=== PATIENT | female | born 1980 | race Caucasian/White ===

== ENCOUNTER 2017-05-31 14:14 | Emergency (ER) | payer OTHER ==
--- NOTE | 2017-05-31 15:30 | EDPHY ---
H & P Stated Complaint: LOWER ABD PAIN W/ CHILLS X 2 DAYS Source: Patient Exam Limitations: No limitations - Personal History LMP (Females 10-55): 8-14 Days Ago Current Tetanus Diphtheria and Acellular Pertussis (TDAP): Yes - Medical/Surgical History Other PMH: DEPRESSION-RESOLVED - Social History Smoking Status: Never smoked HPI/ROS: CHIEF COMPLAINT: Lower abdominal pain HISTORY OF PRESENT ILLNESS: Patient complains of lower abdominal/suprapubic pain. This started yesterday morning. It has been constant duration. [id number]. Worse with palpation, bending over and standing up or Valsalva. Does not radiate. Nausea but no vomiting. No dysuria, hematuria or urinary frequency. No flank pain. She feels as though her bladder or uterus are inflamed or causing the pain. She also has a slight concern for ectopic , which she has not taken a test. She is trying to become over the past 8 months. Single partner. No vaginal bleeding or discharge. No trauma or injury. No other associated complaints or modifying factors. REVIEW OF SYSTEMS: Ten systems reviewed and are negative unless otherwise noted in the HPI PAST MEDICAL HISTORY: Denies any medical history or medications. SOCIAL HISTORY: Nonsmoker. 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 No murmur. Gastrointestinal: Abdomen is soft and nondistended. There is moderate suprapubic tenderness. No right lower quadrant tenderness. Negative McBurney. Negative obturator or heel jar. No rebound. No distention. No guarding. No CVA tenderness. Nonacute abdomen. Back: non-tender, no bony abnormalities Neurological: A&O, nonfocal, normal gait Skin: Warm and dry, no rash Extremities: Nontender, no pedal edema Psychiatric: Mood and affect normal DIFFERENTIAL DIAGNOSES: Including but not limited to cystitis, uterine fibroids, ovarian cysts, ectopic , UTI, ovarian torsion MDM: 3:25 p.m. Suprapubic abdominal pain and central pelvic pain since yesterday. Abdominal exam is nonacute. She does have suprapubic tenderness. Vital signs are within normal limits. Laboratory studies have been ordered. She feels this is related to her uterus, thus I have ordered a pelvic ultrasound. 4:20 p.m. Laboratory studies are well within normal limits. There are no acute abnormalities. Notified by radiologist Dr. Savage. Ultrasound reveals a left- sided ovarian cyst. There is no torsion of either ovary. Normal-appearing uterus. I have re-evaluated the patient. She still has a moderate to severe suprapubic pain. She is very tender on examination. We discussed the risks, benefits and alternatives of CT scan and she would like to proceed with CT scan of the abdomen pelvis. We discussed that this may not delineate her pain, and she is comfortable with proceeding with CT scan. 5:30 p.m. At this time I have discussed the case with Dr. Gonzalez. I have checked the patient out to him. He will provide final disposition pending the CT scan. Please see his note for further details. SUPERVISION: Patient was evaluated in conjunction with the supervising physician. Please see their note for details. (Ge Martinez) Constitutional: Initial Vital Signs Temperature (C) 98.8 F 05/31/17 14:24 Heart Rate 92 05/31/17 14:24 Respiratory Rate 18 05/31/17 14:24 Blood Pressure 156/107 H 05/31/17 14:24 O2 Sat (%) 96 05/31/17 14:24 O2 Delivery Mode Room Air Allergies/Adverse Reactions: amoxicillin [Amoxicillin] Allergy (Mild, Verified 12/29/09 06:28) Rash Home Medications: Medication Instructions Recorded Hydrocodone/APAP 5/325 [Jasper 1 - 2 tab PO Q4H PRN #13 tab 05/31/17 5/325 (*)] Ondansetron Odt [Zofran Odt 4 mg 4 mg PO Q6 PRN #12 tab 05/31/17 (*)] Medical Decision Making ED Course/Re-evaluation: Care transferred [facility] from [facility] pending CT scan of the abdomen pelvis. I have reviewed the CT and ultrasound with Dr. Park, radiology. No acute findings other than a cyst. On examination patient has some suprapubic tenderness. Urinalysis is negative for UTI at this time. Blood work is unremarkable. Is unclear the cause of the patient's pain at this time. Will discharge with follow up with her OBGYN early next week. (Narinder Gonzalez) - Data Points Laboratory Results: Laboratory Results 05/31/17 15:20 05/31/17 15:20 Medications Given: Discontinued Medications Sodium Chloride (Ns) 1,000 mls @ 0 mls/hr IV EDNOW ONE; Wide Open PRN Reason: Protocol Stop: 05/31/17 16:23 Last Admin: 05/31/17 16:50 Dose: 1,000 mls Departure - Departure Disposition: Home, Routine, Self-Care Clinical Impression: Abdominal pain Qualifiers: Abdominal location: lower abdomen, unspecified Qualified Code(s): R10.30 - Lower abdominal pain, unspecified Condition: Good Instructions: Abdominal Pain (ED) Additional Instructions: 1. Medications as prescribed as needed 2. Follow up with primary care physician as discussed 3. ED precautions as discussed Referrals: NONE *PRIMARY CARE P,. [Primary Care Provider] - As per Instructions Lorraine Patel MD [Medical Doctor] - As per Instructions Prescriptions: Hydrocodone/APAP 5/325 [Jasper 5/325 (*)] 1 - 2 tab PO Q4H PRN #13 tab PRN Reason: Pain, Moderate Ondansetron Odt [Zofran Odt 4 mg (*)] 4 mg PO Q6 PRN #12 tab PRN Reason: Nausea/Vomiting, Use 1st
[2017-05-31 15:39] LABS: % IMMATURE GRANULYOCYTES 0.2 % (0.0-1.1); ABSOLUTE IMMATURE GRANULOCYTES 0.02 10^3/uL (0.00-0.10); ADD DIFF? NO; ADD MORPH? NO; ADD SCAN? NO; ATYPICAL LYMPHOCYTE FLAG 0 (0-99); FRAGMENT RBC FLAG 10 (0-99); HEMATOCRIT 44.2 % (38.0-47.0); HEMOGLOBIN 15.2 g/dL (12.6-16.3); LEFT SHIFT FLG 0 (0-99); LIPEMIA HEMOLYSIS FLAG 90 (0-99); MEAN CELL HEMOGLOBIN 32.7 pg (27.9-34.1); MEAN CELL HEMOGLOBIN CONCENTR. 34.4 g/dL (32.4-36.7); MEAN CELL VOLUME 95.1 fL (81.5-99.8); MEAN PLATELET VOLUME 9.3 fL (8.7-11.7); PLATELET CLUMPS FLAG 0 (0-99); PLATELET COUNT 235 10^3/uL (150-400); RED BLOOD CELL COUNT 4.65 10^6/uL (4.18-5.33); RED CELL DISTRIBUTION WIDTH 11.9 % (11.5-15.2)
[2017-05-31 15:43] LABS: COLOR PALE YELLOW; LEUKOCYTE ESTERASE,URINE NEGATIVE (NEGATIVE); NITRITE,URINE NEGATIVE (NEGATIVE)
[2017-05-31 15:52] LABS: BACTERIA 1+ /hpf (NONE SEEN); RBC,URINE NONE SEEN /hpf (0-3)
[2017-05-31 15:55] LABS: ALANINE AMINOTRANSFERASE 38 IU/L (9-52); ALBUMIN 4.7 g/dL (3.5-5.0); ALKALINE PHOSPHATASE 46 IU/L (38-126); ANION GAP 11 mEq/L (8-16); ASPARTATE AMINOTRANSFERASE 28 IU/L (14-46); BILIRUBIN,TOTAL 1.3 mg/dL (0.1-1.4); BILIRUBIN-CONJUGATED 0.2 mg/dL (0.0-0.5); BILIRUBIN-UNCONJUGATED 1.1 mg/dL (0.0-1.1); CALCIUM 9.9 mg/dL (8.5-10.4); CARBON DIOXIDE 22 mEq/l (22-31); CHLORIDE 102 mEq/L (97-110); CREATININE 0.8 mg/dL (0.6-1.0); GLOMERULAR FILTRATION RATE > 60; GLUCOSE 79 mg/dL (70-100); POTASSIUM 3.9 mEq/L (3.5-5.2); SODIUM 135 mEq/L (134-144); TOTAL PROTEIN 7.8 g/dL (6.3-8.2)
[2017-05-31] MEDS ORDERED: NS 1,000 ML IV ONE (16:22)
[2017-05-31] MEDS ORDERED: IOPAMIDOL (ISOVUE-300) 100 ML BTL ONE (16:51)
[2017-05-31 17:35] VITALS: PULSE 81; RESP 16; O2SAT 98
[2017-05-31 18:10] VITALS: BP 135/72; TEMP 97.9
== END 2017-05-31 18:10 | disposition home or self-care (01) ==
DX: R10.30 Lower abdominal pain, unspecified (principal); E86.9 Volume depletion, unspecified
CPT/HCPCS: Q9967